=== PATIENT | male | born 1975 | race Caucasian/White ===

== ENCOUNTER 2019-12-25 07:52 | Emergency (ER) | payer BC, SELFPAY ==
[2019-12-25 07:53] VITALS: BP 140/86; PULSE 102; RESP 18; TEMP 35.9; O2SAT 98; BMI 30.6
--- NOTE | 2019-12-25 08:51 | ED.VIS.GEN ---
History of Present Illness Chief Complaint: Fatigue Informant: Patient Narrative: Patient presents the emergency department with a 3-day history of generalized body aches fatigue lightheadedness throat dry cough. He shortness of breath, fever, diarrhea. He notes that yesterday he had a rash on his body but it is resolved. He did not feel that he was able to go to work today so he went to work talk to his boss and they are requiring a work note for him to stay home. He has no primary care physician. Past Medical History - Allergies and Home Meds Allergies/Adverse Reactions: Allergies dexamethasone [From Decadron] Adverse Reaction (Verified 12/25/19 07:55) Upset Stomach Primary Care Physician: Care Physician,No Primary [Primary Care Provider] - Smoking Status: Former smoker Review of Systems General: Reports: Malaise. Denies: Chills, Fever, Sweats Eyes: Denies: Visual changes - bilaterally, Diplopia ENT: Reports: Sore throat. Denies: Left ear pain, Right ear pain, Rhinorrhea Cardiovascular: Denies: Chest pain, Palpitations Respiratory: Reports: Cough. Denies: Dyspnea, Dyspnea on exertion Gastrointestinal: Denies: Abdominal pain, Nausea, Vomiting, Diarrhea, Melena, Hematochezia Genitourinary: Denies: Dysuria, Hematuria, Frequency Musculoskeletal: Reports: Myalgias. Denies: Back pain, Extremity Pain Skin: Denies: Rash, Wounds Neurological: Reports: Headache. Denies: Weakness, Numbness Physical Exam Vital Signs/Narrative: Vital Signs Temp Pulse Resp BP Pulse Ox 12/25/19 07:53 96.6 F L 102 H 18 140/86 H 98 General: Well nourished, Well developed, No Acute Distress Head: Normocephalic, Atraumatic Eyes: Perrl, EOMI ENT: Moist mucous membranes, No rhinorrhea Neck: Supple, Nontender Cardiovascular: Regular rate, Regular rhythm, No murmurs Respiratory: No distress, CTA bilaterally, Chest nontender Abdomen: Soft, Nontender, Nondistended, Normal bowel sounds Back: Nontender, Normal Inspection Extremities: Nontender, No edema Skin: Normal color, No rash Neurological: Alert, Oriented x3, Cranial nerves II-XII grossly intact, Normal Strength, Normal Sensation Psychological: Normal affect, Normal Mood Diagnostic/Tx/Re-eval - Medical Decision Making This appears to be a viral illness. We can swab him for COVID-19 as this visit took place during a pandemic. I recommend Tylenol Motrin fluids and rest. I can write him work note for couple days. Needs to establish primary care. Referral given. ED Disposition - Plan for ED Patient: Disposition: Home or Assisted Living Diagnosis: Viral syndrome Instructions: ED Viral Syndrome Referrals: Tian Palacios MD [STAFF PHYSICIAN] - (call for follow up and to establish primary care)
== END 2019-12-25 09:29 | disposition home or self-care (01) ==
PROVIDERS: Emergency Provider Emergency Medicine
DX: B34.9 Viral infection, unspecified (principal); Z87.891 Personal history of nicotine dependence
CPT/HCPCS: 87635; 94799; 99282; U0003

== ENCOUNTER → 2020-04-22 14:18 | Outpatient (CLI) | payer BC, SELFPAY ==
[2020-04-22 13:21] VITALS: BMI 32.7
[2020-04-22 15:07] LABS: Absolute Lymphocyte Count 1.31 X10^3/uL (0.83-4.51); Basophil# 0.06 X10^3/uL; Eosinophil# 0.16 X10^3/uL; Eosinophils% 2.7 % (0-5); Hematocrit 49.8 % (40-54); Hemoglobin 15.8 g/dL (13.0-16.5); Lymphocyte # 1.31 X10^3/ul (4.0); Lymphocyte % 22.1 % (19-41); Mean Corp Hgb Conc 31.7 g/dL (32-36); Mean Corpuscular Hgb 27.3 pg (27.0-32.0); Mean Platelet Vol. 10.2 fl (6.2-12.0); Monocyte# 0.36 X10^3/uL; Monocyte% 6.1 % (0-10); NRBC Flagged by Analyzer 0 % (0-5); Neutrophil # 4.04 X10^3/uL (2.7-7.7); Neutrophil % 67.9 % (47-70); Platelet Count 255 K/mm3 (150-450); RBC Distribution Width CV 13.3 % (11.6-14.6); RBC Distribution Width SD 41.5 fl (35.1-43.9); Red Blood Count 5.79 M/mm3 (4.6-6.2); White Blood Count 5.9 K/mm3 (4.4-11.0)
[2020-04-22 15:22] LABS: Hemoglobin A1c 5.9 % (3.8-5.6)
[2020-04-22 15:26] LABS: AST(SGOT) 14 U/L (15-37); Alanine Aminotransfer ALT/SGPT 38 U/L (16-61); Albumin, Serum 3.9 g/dL (3.2-5.0); Alkaline Phosphatase 82 U/L (45-117); Anion Gap 6 (5-15); BUN 12 mg/dL (7-18); Calcium,Total 8.8 mg/dL (8.5-10.1); Chloride 106 mmol/L (98-107); Cholesterol 158 mg/dL (200); Creatinine, Serum 1.09 mg/dL (0.70-1.30); EST Glomerular Filtration Rate 78 mL/min (>60); Est Glom Filt Rate - Afr Amer 95 mL/min (>60); Glucose 113 mg/dL (74-106); High Density Lipoprotein 45 mg/dL; Potassium 3.9 mmol/L (3.5-5.1); Protein, Total 7.9 g/dL (6.4-8.2); Sodium Level 139 mmol/L (136-145); Thyroid Stim Hormone (TSH) 0.66 uIU/mL (0.358-3.74); Triglycerides 151 mg/dL; Very Low Density Lipoprotein 30 mg/dL (5-40)
== END ==
PROVIDERS: Visit Provider Internal Medicine
DX: G47.30 Sleep apnea, unspecified (principal); R73.9 Hyperglycemia, unspecified
CPT/HCPCS: 36415; 80053; 80061; 83036; 84443; 85025

== ENCOUNTER 2021-07-31 12:27 | Outpatient (CLI) | payer BC, SELFPAY ==
[2021-07-31 15:18] LABS: Absolute Neutrophil Count 3.8 X10^3/uL (2.0-7.7); Basophil# 0.04 X10^3/uL; Basophil% 0.7 % (0-1); Eosinophil# 0.09 X10^3/uL; Eosinophils% 1.6 % (0-5); Hematocrit 47.4 % (40-54); Hemoglobin 15.4 g/dL (13.0-16.5); Lymphocyte % 21.7 % (19-41); Mean Corp Hgb Conc 32.5 g/dL (32-36); Mean Corpuscular Hgb 27.8 pg (27.0-32.0); Mean Corpuscular Volume 85.6 fL (80-94); Mean Platelet Vol. 10.2 fl (6.2-12.0); Monocyte# 0.34 X10^3/uL; Monocyte% 6.2 % (0-10); NRBC Flagged by Analyzer 0 % (0-5); Neutrophil # 3.84 X10^3/uL (2.7-7.7); Neutrophil % 69.6 % (47-70); Platelet Count 267 K/mm3 (150-450); RBC Distribution Width CV 12.9 % (11.6-14.6); RBC Distribution Width SD 40.4 fl (35.1-43.9); Red Blood Count 5.54 M/mm3 (4.6-6.2); White Blood Count 5.5 K/mm3 (4.4-11.0)
[2021-07-31 15:31] LABS: Vitamin D,25 Hydroxy 10.9 ng/mL
[2021-07-31 15:44] LABS: ALB/GLOB Ratio 1.1 RATIO (0.9-2.4); AST(SGOT) 23 U/L (15-37); Alanine Aminotransfer ALT/SGPT 45 U/L (16-61); Albumin, Serum 4.4 g/dL (3.2-5.0); Alkaline Phosphatase 92 U/L (45-117); Anion Gap 6 (5-15); BUN 12 mg/dL (7-18); BUN/Creat Ratio 10.6 RATIO (10-20); Calcium,Total 9.1 mg/dL (8.5-10.1); Chloride 103 mmol/L (98-107); Cholesterol 161 mg/dL (200); Creatinine, Serum 1.13 mg/dL (0.70-1.30); EST Glomerular Filtration Rate 75 mL/min (>60); Est Glom Filt Rate - Afr Amer 90 mL/min (>60); Globulin 3.9 g/dL (2.2-4.2); Glucose 99 mg/dL (74-106); High Density Lipoprotein 34 mg/dL; Magnesium 2.4 mg/dL (1.6-2.6); PSA,Total - Annual Screen 0.64 ng/mL (0.00-4.00); Potassium 3.8 mmol/L (3.5-5.1); Protein, Total 8.3 g/dL (6.4-8.2); Sodium Level 136 mmol/L (136-145); Thyroid Stim Hormone (TSH) 1.35 uIU/mL (0.358-3.74); Triglycerides 279 mg/dL; Very Low Density Lipoprotein 56 mg/dL (5-40)
[2021-07-31 15:58] LABS: Hemoglobin A1c 6.4 % (3.8-5.6)
== END 2021-07-31 23:59 | disposition home or self-care (01) ==
PROVIDERS: PCP Internal Medicine; Referring Provider Internal Medicine; Visit Provider Internal Medicine
DX: I10 Essential (primary) hypertension (principal); G47.30 Sleep apnea, unspecified; F41.9 Anxiety disorder, unspecified; Z12.5 Encounter for screening for malignant neoplasm of prostate
CPT/HCPCS: 36415; 80053; 80061; 82306; 83036; 83735; 84153; 84443; 85025; G0103

== ENCOUNTER → 2021-12-04 | Outpatient (CLI) | payer BC, SELFPAY ==
[2021-12-04 10:20] LABS: Mucous, Urine 0 SEEN /hpf (<or=2+)
[2021-12-04 12:31] LABS: Color, Urine Yellow (Yellow); Glucose, Dipstick Normal (Normal); Ketone-Dipstick 5 mg/dl (Negative); Leukocyte Esterase-Dipstick 500 /ul (Negative); Nitrite-Dipstick Positive (Negative); Occult Blood-Urine 250 /ul (Negative); Protein-Dipstick 100 mg/dl (Negative); Urine Bilirubin Dipstick Negative (Negative); Urine Clarity Sl. Cloudy (Clear); Urine Urobilinogen Normal (Normal)
[2021-12-04 12:39] LABS: Bacteria 1+ /hpf (None Seen); Red Blood Cells-Urine 25-50 SEEN /hpf (0-5); Squamous Epithelial Cells - UA 0-5 SEEN /hpf (0-5); White Blood Cells 25-50 SEEN /hpf (0-5)
[2021-12-04 14:24] LABS: Chlamydia Trachomatis by PCR Negative (Negative); Neisserai gonorrhoeae by PCR Negative (Negative); Probe Check PASS; Sample Adequacy Control PASS; Specimen Processing Control PASS
== END | disposition home or self-care (01) ==
LOC: LABSPEC 10:19
PROVIDERS: PCP Internal Medicine; Referring Provider Physician Assistant; Visit Provider Physician Assistant
DX: R30.0 Dysuria (principal); R31.9 Hematuria, unspecified; Z11.3 Encounter for screening for infections with a predominantly sexual mode of transmission
CPT/HCPCS: 81001; 87086; 87088; 87491; 87591

== ENCOUNTER → 2023-07-08 | Outpatient (CLI) | payer OTHER, SELFPAY ==
[2023-07-08 12:48] LABS: Absolute Lymphocyte Count 1.24 X10^3/uL (0.83-4.51); Absolute Neutrophil Count 5.5 X10^3/uL (2.0-7.7); Basophil# 0.05 X10^3/uL; Basophil% 0.7 % (0-1); Eosinophil# 0.13 X10^3/uL; Eosinophils% 1.8 % (0-5); Hematocrit 47.8 % (40-54); Hemoglobin 15.5 g/dL (13.0-16.5); Lymphocyte # 1.24 X10^3/ul (0.83-4.51); Lymphocyte % 16.7 % (19-41); Mean Corp Hgb Conc 32.4 g/dL (32-36); Mean Corpuscular Hgb 26.9 pg (27.0-32.0); Mean Platelet Vol. 10.2 fl (6.2-12.0); Monocyte# 0.44 X10^3/uL; Monocyte% 5.9 % (0-10); NRBC Flagged by Analyzer 0 % (0-5); Neutrophil # 5.54 X10^3/uL (2.7-7.7); Neutrophil % 74.6 % (47-70); Platelet Count 251 K/mm3 (150-450); RBC Distribution Width CV 13.2 % (11.6-14.6); RBC Distribution Width SD 39.8 fl (35.1-43.9); Red Blood Count 5.76 M/mm3 (4.6-6.2); White Blood Count 7.4 K/mm3 (4.4-11.0)
[2023-07-08 13:17] LABS: Vitamin B12 314 pg/mL (211-911); Vitamin D,25 Hydroxy 14.1 ng/mL
[2023-07-08 13:41] LABS: ALB/GLOB Ratio 0.9 RATIO (0.9-2.4); AST(SGOT) 28 U/L (15-37); Alanine Aminotransfer ALT/SGPT 59 U/L (16-61); Albumin, Serum 4.1 g/dL (3.2-5.0); Alkaline Phosphatase 92 U/L (45-117); Anion Gap 4 (5-15); BUN 16 mg/dL (7-18); BUN/Creat Ratio 14.2 RATIO (10-20); Calcium,Total 9.8 mg/dL (8.5-10.1); Chloride 103 mmol/L (98-107); Cholesterol 151 mg/dL (200); Creatinine, Serum 1.13 mg/dL (0.70-1.30); EST Glomerular Filtration Rate 74 mL/min (>60); Est Glom Filt Rate - Afr Amer 90 mL/min (>60); Free T3 3.3 pg/mL (2.18-3.98); Globulin 4.4 g/dL (2.2-4.2); Glucose 142 mg/dL (74-106); High Density Lipoprotein 37 mg/dL; Magnesium 2.1 mg/dL (1.6-2.6); PSA,Total - Annual Screen 1.67 ng/mL (0.00-4.00); Protein, Total 8.5 g/dL (6.4-8.2); Sodium Level 135 mmol/L (136-145); Thyroid Stim Hormone (TSH) 1.41 uIU/mL (0.358-3.74); Triglycerides 349 mg/dL; Very Low Density Lipoprotein 70 mg/dL (5-40)
[2023-07-08 13:49] LABS: Hemoglobin A1c 6.6 % (3.8-5.6)
== END | disposition home or self-care (01) ==
PROVIDERS: PCP Internal Medicine; Referring Provider Internal Medicine; Visit Provider Internal Medicine
DX: I10 Essential (primary) hypertension (principal); G47.30 Sleep apnea, unspecified; Z12.5 Encounter for screening for malignant neoplasm of prostate; Z13.220 Encounter for screening for lipoid disorders; E55.9 Vitamin D deficiency, unspecified; E88.819 Insulin resistance, unspecified; R73.9 Hyperglycemia, unspecified; E53.8 Deficiency of other specified B group vitamins
CPT/HCPCS: 36415; 80053; 80061; 82306; 82607; 83036; 83525; 83735; 84153; 84439; 84443; 84481; 85025; G0103

== ENCOUNTER → 2024-06-20 | Outpatient (CLI) | payer BC, SELFPAY ==
[2024-06-20 13:49] LABS: Absolute Lymphocyte Count 1.15 X10^3/uL (0.83-4.51); Basophil# 0.06 X10^3/uL; Eosinophil# 0.27 X10^3/uL; Eosinophils% 4.7 % (0-5); Hematocrit 45.1 % (40-54); Hemoglobin 14.7 g/dL (13.0-16.5); Lymphocyte # 1.15 X10^3/ul (0.83-4.51); Lymphocyte % 19.8 % (19-41); Mean Corp Hgb Conc 32.6 g/dL (32-36); Mean Corpuscular Hgb 27.3 pg (27.0-32.0); Mean Corpuscular Volume 83.7 fL (80-94); Mean Platelet Vol. 9.8 fl (6.2-12.0); Monocyte# 0.31 X10^3/uL; Monocyte% 5.3 % (0-10); NRBC Flagged by Analyzer 0 % (0-5); Platelet Count 215 K/mm3 (150-450); RBC Distribution Width CV 13.2 % (11.6-14.6); RBC Distribution Width SD 40.6 fl (35.1-43.9); Red Blood Count 5.39 M/mm3 (4.6-6.2); White Blood Count 5.8 K/mm3 (4.4-11.0)
[2024-06-20 14:20] LABS: ALB/GLOB Ratio 0.9 RATIO (0.9-2.4); AST(SGOT) 22 U/L (15-37); Alanine Aminotransfer ALT/SGPT 39 U/L (16-61); Albumin, Serum 3.8 g/dL (3.2-5.0); Alkaline Phosphatase 78 U/L (45-117); Anion Gap 7 (5-15); BUN 11 mg/dL (7-18); BUN/Creat Ratio 10.1 RATIO (10-20); Calcium,Total 9.3 mg/dL (8.5-10.1); Chloride 104 mmol/L (98-107); Cholesterol 131 mg/dL (200); Creatinine, Serum 1.09 mg/dL (0.70-1.30); EST Glomerular Filtration Rate 77 mL/min (>60); Est Glom Filt Rate - Afr Amer 93 mL/min (>60); Globulin 4.1 g/dL (2.2-4.2); Glucose 105 mg/dL (74-106); High Density Lipoprotein 40 mg/dL; PSA,Total- Diagnostic 0.69 ng/mL (0.0-4.0); Potassium 3.7 mmol/L (3.5-5.1); Protein, Total 7.9 g/dL (6.4-8.2); Sodium Level 137 mmol/L (136-145); Triglycerides 176 mg/dL; Very Low Density Lipoprotein 35 mg/dL (5-40)
[2024-06-25 13:06] LABS: Testosterone, % Free 5.58 % (1.50-4.20); Testosterone, Free 13.06 ng/dL (5.00-21.00); Testosterone, Total 234 ng/dL (264-916)
== END | disposition home or self-care (01) ==
LOC: LAB 13:26
PROVIDERS: PCP Internal Medicine
DX: R53.83 Other fatigue (principal); Z13.220 Encounter for screening for lipoid disorders; Z13.29 Encounter for screening for other suspected endocrine disorder; Z12.5 Encounter for screening for malignant neoplasm of prostate
CPT/HCPCS: 36415; 80053; 80061; 84153; 84402; 84403; 84443; 85025

== ENCOUNTER 2024-08-26 01:10 | Emergency (ER) | payer BC, SELFPAY ==
[2024-08-26 01:10] VITALS: BP 159/87; PULSE 78; RESP 16; TEMP 36.7; O2SAT 98; BMI 33.2
[2024-08-26 01:13] VITALS: BP 159/87; PULSE 78; RESP 16; TEMP 36.7; O2SAT 98
--- NOTE | 2024-08-26 01:34 | EX.ED.DYSGE1 ---
HPI History of Present Illness Chief Complaint: Fever [facility] Medical History (Updated 08/26/24 @ 02:[address] Jarred England, DO) Subcutaneous mass Anxiety Sleep apnea Essential hypertension Home Medications ?Medication ?Instructions ?Recorded ?Last Taken ?Type lisinopril 20 1 tab PO DAILY #90 tabs 07/08/23 Unknown Rx mg-hydrochlorothiazide 12.5 mg tablet trazodone 50 mg tablet 50 mg PO QHS PRN sleep #30 tabs 07/08/23 Unknown Rx citalopram 40 mg tablet 40 mg PO DAILY 08/26/24 Unknown History ondansetron 4 mg disintegrating 4 mg PO Q8H PRN PRN Nausea #10 tabs 08/26/24 Unknown Rx tablet Allergy/AdvReac Type Severity Reaction Status Date / Time dexamethasone (From Decadron) AdvReac Upset Verified 08/26/24 01:15 Stomach Family History Mother Diabetes Hypertension Brother Diabetes Father , stroke Hypertension CVA (cerebral vascular accident) Surgical History Hx of hand surgery Social History Smoking Status: Current every day smoker tobacco type: cigarettes and e-cigarettes Electronic Cigarette Use: with nicotine alcohol intake: current alcohol intake frequency: a few times a month substance use type: does not use caffeine: Yes what type of physical activity do you participate in: walking, running and weight training frequency: 3-4 times per week EXAM Physical Exam Const Vital Signs: 08/26/24 01:10 08/26/24 01:13 08/26/24 01:13 Temperature 98.1 F 98.1 F Temperature Source Oral Oral Pulse Rate 78 78 Respiratory Rate 16 16 Respiratory Effort Normal Respiratory Pattern Normal Blood Pressure 159/87 H 159/87 H Blood Pressure Mean 111 111 Pulse Ox 98 98 Oxygen Delivery Method Room Air Room Air 08/26/24 01:42 08/26/24 03:00 08/26/24 03:08 Temperature 98.1 F 98.1 F Temperature Source Oral Pulse Rate 70 73 Respiratory Rate 18 18 Respiratory Effort Respiratory Pattern Blood Pressure 107/64 124/66 H 124/66 H Blood Pressure Mean 78 85 85 Pulse Ox 99 99 Oxygen Delivery Method Room Air MDM MDM MDM Narrative Medical decision making narrative: HISTORY OF PRESENT ILLNESS: Chief complaint: viral illness 48-year-old male presents with concern for fever, body aches congestion and weakness. He notes he had a colonoscopy done on (08/24/2024). Patient states he is concerned he may be having complication because since then has been having fever, head congestion and bodyaches. No sick contacts. He denies abdominal pain. He denies diarrhea. Denies trouble urinating. States primary concern is complication related to colonoscopy. REVIEW OF SYSTEMS: Pertinent positives: As per HPI Pertinent negatives: Abdominal pain, diarrhea PHYSICAL EXAM: Nursing triage notes reviewed, Vital signs reviewed Constitutional: please see [facility] HENT: MMM Eyes: Pupils equal round and reactive to light, Extraocular muscles intact Neck: No stridor, no JVD, full neck ROM Lungs: Clear to auscultation, No wheezing or rales. No increased work of breathing, no conversational dyspnea, no accessory muscle use, no nasal flaring. No respiratory distress noted Heart: Regular rate and rhythm, No murmurs, No rubs and No gallops, 2+ distal pulses (radial, femoral, posterior tibial) in all extremities Abdomen: Soft, there is no tenderness, rigidity, rebound or guarding, no obvious peritoneal signs, no palpable pulsatile abdominal masses, no auscultated abdominal bruit : No CVAT Extremities: No edema Neuro: No new focal neurological deficits, cranial nerves II through XII intact, 5/5 strength in all present extremities. Intact sensation to light touch in all present extremities, 2+ reflexes bilateral patella tendons. Skin: No rash or lesions noted MEDICAL DECISION MAKING: Chief Complaint: please see [facility] External records reviewed: Reviewed prior surgical history Factors affecting care: Hypertension Social determinants of health: none History obtained from others: none Consults: none [facility] Narrative: Patient was initially hemodynamically stable, afebrile and nontoxic-appearing. Exam without focus of infection. Abdomen soft and nontender. I considered the following differential diagnosis: Post colonoscopy complication, dehydration, COVID, pneumonia, flu, RSV I obtained a broad lab and imaging workup to further elucidate etiology of patient's complaints. ALL IMAGES (IF OBTAINED) HAVE BEEN PERSONALLY REVIEWED AND INTERPRETED BY MYSELF. Influenza A positive CBC without leukocytosis, severe anemia, no thrombocytopenia. CMP without evidence of acute kidney injury, significant electrolyte abnormality, anion gap to suggest end organ hypo-perfusion, no evidence of metabolic acidosis with a normal bicarbonate, no evidence of hepatobiliary obstructive pathology. CT scan abdomen pelvis negative for acute abnormalities or postsurgical complication Lipase is wnl indicating no pancreatic inflammation. I have personally reviewed the patient's chest x-ray. Chest x-ray is unremarkable for pulmonary edema, pneumothorax, pneumonia or focal cardiopulmonary abnormality. Lactate is wnl indicating no end-organ hypoperfusion and/or hypoxia. Urinalysis shows no evidence of urinary inflammation suggestive of UTI The synthesis of the patient's history, physical exam, labs images suggest no acute life or limb threatening etiology. He is likely suffering from influenza. The patient and/or family, caregivers express understanding. The patient and/or family, caregivers agrees with the plan. Shared decision making: I will have a discussion with the patient and or visitors regarding risk/benefits of further testing or admission. They will be made aware of of the risk/benefits inherent in this decision they will be given the opportunity to voice understanding. Total critical care time today provided was at least 0 minutes. This excludes separately billable procedures. Critical care time (if documented) is secondary to the patient having high probability of clinically significant/life threatening deterioration in the patient's condition which required my urgent intervention. Impression: 1. Influenza A 2. Fever Dispo: Discharge home This note was generated with [employer] dictation software. It may contain incorrect words, spelling, and punctuation that were not noted in review of the chart prior to signing. Lab Data Attestation: I reviewed the patient's lab results. Labs: Laboratory Results - last 24 hr 08/26/24 08/26/24 01:56 02:00 WBC 5.9 RBC 5.22 Hgb 14.3 Hct 43.9 MCV 84.1 MCH 27.4 MCHC 32.6 RDW Std Deviation 42.4 RDW Coeff of Alex 13.9 Plt Count 209 MPV 10.1 Immature Gran % (Auto) 0.300 Neut % (Auto) 65.2 Lymph % (Auto) 17.3 L [place] % (Auto) 10.6 H Eos % (Auto) 5.9 H Baso % (Auto) 0.7 Absolute Neuts (auto) 3.9 Absolute Lymphs (auto) 1.03 Nucleated RBC % 0 Sodium 137 Potassium 3.9 Chloride 100 Carbon Dioxide 24.3 Anion Gap 13 BUN 13 Creatinine 1.24 H Estim Creat Clear Calc 103.02 Est GFR (MDRD) Non-Af 72 BUN/Creatinine Ratio 10.6 Glucose 114 H Lactic Acid < 1.0 Calcium 9.7 Total Bilirubin 0.76 AST 31 ALT 34 Alkaline Phosphatase 86 Total Protein 8.0 Albumin 4.4 Globulin 3.6 Albumin/Globulin Ratio 1.2 Lipase 32 Urine Color Yellow Urine Clarity Sl. Cloudy Urine pH 6.0 Ur Specific [place] 1.030 Urine Protein 100 H Urine Glucose (UA) Normal Urine Ketones Negative Urine Occult Blood 150 H Urine Nitrite Negative Urine Bilirubin Negative Urine Urobilinogen 1 H Ur Leukocyte Esterase 25 H Urine RBC 0 SEEN Urine WBC 10-25 SEEN Ur Squamous Epith Cells 5-10 SEEN Urine Bacteria 3+ Hyaline Casts 0-5 SEEN Urine Mucus 4+ Radiography Chest X-Ray - ED: Read by ED Physician Diagnostic Testing: Clinical Impression(s) from Imaging Studies Abdomen/Pelvis CT 08/26/24 01:48 IMPRESSION: No evidence of acute intra-abdominal process as above. Reading Location: [facility] Chest X-Ray 08/26/24 02:27 IMPRESSION: No evidence of acute disease. Reading Location: [facility] Discharge Plan Triage Chief Complaint: Fever ED Provider: Jarred England Dx/Rx/DC Orders Clinical Impression: Influenza A Instructions: The Flu (Influenza) Prescriptions: New ondansetron 4 mg tablet,disintegrating 4 mg PO Q8H PRN PRN (Reason: Nausea) Qty: 10 0RF No Action trazodone 50 mg tablet 50 mg PO QHS PRN (Reason: sleep) Qty: 30 1RF lisinopril-hydrochlorothiazide 20-12.5 mg tablet 1 tab PO DAILY Qty: 90 3RF citalopram 40 mg tablet 40 mg PO DAILY Primary Care Provider: Faustina Casarez Referrals: Jazz Sherwood MD [Med Staff - [facility]] - Activity Restrictions/Additional Instructions: Thank you for trusting us with your care today! Your influenza test was positive is likely cause of your symptoms i.e. the flu. Your CT scan your and pelvis showed no signs of postoperative complications Please take Tylenol (2 pills, 650 mg), ibuprofen (2 pills, 400 mg) every 6 hours as needed for pain and fever control. Please return to the emergency department if your symptoms change or worsen. Please follow with your primary care physician for further outpatient evaluation and management. Print Language: Puerto Rican Disposition Disposition: Home, Self Care Discharge Date/Time: 08/26/24 03:15
[2024-08-26 01:42] VITALS: BP 107/64
--- NOTE | 2024-08-26 01:48 | EKG12_ITS ---
Test Reason : DYSRHYTHMIA Blood Pressure : */* mmHG Vent. Rate : 71 BPM Atrial Rate : 71 BPM P-R Int : 156 ms QRS Dur : 102 ms QT Int : 388 ms P-R-T Axes : 18 -20 -7 degrees QTcB Int : 421 ms Normal sinus rhythm Minimal voltage criteria for LVH, may be normal variant ( R in aVL ) Inferior infarct , age undetermined Abnormal ECG Confirmed by Varun Baltazar ([id number]), editor continuity and script EVELIN BURGOS ([id number]) on 08/28/2024 6:56:47 AM Referred By: Confirmed By: Varun Baltazar
--- NOTE | 2024-08-26 01:48 | CT_ITS ---
PROCEDURE: ABDOMEN/PELVIS W IV CONT ONLY 08/26/2024 REASON FOR EXAM: FEVER, STATUS POST COLONOSCOPY, R/O COMPLICATION TECHNIQUE: Abdomen and pelvis CT with intravenous contrast. Coronal and Sagittal reconstruction series were provided. PATIENT PREPARATION: Per protocol ORAL CONTRAST TYPE: None. CONTRAST: 98 cc Isovue 370 IV One or more dose reduction techniques were used (e.g., Automated exposure control, adjustment of the mA and/or kV according to patient size, use of iterative reconstruction technique. RADIATION DOSE SUMMARY: CTDlvol: 23.05 mGy DLP: 1161.43 mGycm COMPARISON: None available FINDINGS: The lung bases are clear. The liver, adrenal glands, kidneys, gallbladder, pancreas and spleen appear within limits. Abdominal aorta within limits. No adenopathy. No bowel dilation or free air. Normal caliber appendix without secondary signs. Bowel appears within limits. The bladder and prostate appear within limits. No free fluid. Left paracentral, foraminal, far lateral posterior disc osteophyte complex on the left at L3-4 resulting in significant appearing foraminal narrowing for example axial 60 and sagittal 91. Partially left sacralized L5 vertebral body for nomenclature purposes. CT/Abdomen/Pelvis W IV Cont ONLY IMPRESSION: No evidence of acute intra-abdominal process as above. Reading Location: [id number]
[2024-08-26] MEDS: 0.9% Normal Saline (1000mL) 1,000 ML 1000 ML IV (02:02)
[2024-08-26] MEDS: Ketorolac 15 MG/ML Vial IV (02:02)
[2024-08-26] MEDS: Ondansetron 4 MG/2 ML Vial IV (02:03)
[2024-08-26 02:08] LABS: Red Blood Cells-Urine 0 SEEN /hpf (0-5)
[2024-08-26 02:11] LABS: Absolute Lymphocyte Count 1.03 X10^3/uL (0.83-4.51); Absolute Neutrophil Count 3.9 X10^3/uL (2.0-7.7); Basophil# 0.04 X10^3/uL; Basophil% 0.7 % (0-1); Eosinophil# 0.35 X10^3/uL; Eosinophils% 5.9 % (0-5); Hematocrit 43.9 % (40-54); Hemoglobin 14.3 g/dL (13.0-16.5); Lymphocyte # 1.03 X10^3/ul (0.83-4.51); Lymphocyte % 17.3 % (19-41); Mean Corp Hgb Conc 32.6 g/dL (32-36); Mean Corpuscular Hgb 27.4 pg (27.0-32.0); Mean Corpuscular Volume 84.1 fL (80-94); Mean Platelet Vol. 10.1 fl (6.2-12.0); Monocyte# 0.63 X10^3/uL; Monocyte% 10.6 % (0-10); NRBC Flagged by Analyzer 0 % (0-5); Neutrophil # 3.87 X10^3/uL (2.7-7.7); Neutrophil % 65.2 % (47-70); Platelet Count 209 K/mm3 (150-450); RBC Distribution Width CV 13.9 % (11.6-14.6); RBC Distribution Width SD 42.4 fl (35.1-43.9); Red Blood Count 5.22 M/mm3 (4.6-6.2); White Blood Count 5.9 K/mm3 (4.4-11.0)
[2024-08-26 02:12] LABS: Color, Urine Yellow (Yellow); Glucose, Dipstick Normal (Normal); Ketone-Dipstick Negative (Negative); Leukocyte Esterase-Dipstick 25 /ul (Negative); Nitrite-Dipstick Negative (Negative); Occult Blood-Urine 150 /ul (Negative); Protein-Dipstick 100 mg/dl (Negative); Urine Bilirubin Dipstick Negative (Negative); Urine Clarity Sl. Cloudy (Clear); Urine Urobilinogen 1 mg/dl (Normal)
--- NOTE | 2024-08-26 02:27 | RAD_ITS ---
PROCEDURE: CHEST 1 VIEW (PORTABLE) 08/26/2024 REASON FOR EXAM: COUGH TECHNIQUE: Frontal view of the chest. Two views to include the entire chest COMPARISON: None available FINDINGS: The lungs appear clear. Pulmonary vascularity appears within limits. The cardiac and mediastinal contours appear within limits. The visualized osseous structures appear within limits. RAD/Chest 1 View (Portable) IMPRESSION: No evidence of acute disease. Reading Location: [id number]
[2024-08-26 02:33] LABS: ALB/GLOB Ratio 1.2 RATIO (0.9-2.4); AST(SGOT) 31 U/L (<=37); Alanine Aminotransfer ALT/SGPT 34 U/L (<=46); Albumin, Serum 4.4 g/dL (3.5-5.0); Alkaline Phosphatase 86 U/L (40-129); Anion Gap 13 (5-15); BUN 13 mg/dL (4-19); BUN/Creat Ratio 10.6 RATIO (10-20); Calcium,Total 9.7 mg/dL (7.6-11.0); Carbon Dioxide 24.3 mmol/L (21.0-32.0); Chloride 100 mmol/L (98-108); Creatinine, Serum 1.24 mg/dL (0.70-1.20); EST Glomerular Filtration Rate 72 (>60); Estimated Creatinine Clearance 103.02 ml/min (50-250); Globulin 3.6 g/dL (2.2-4.2); Glucose 114 mg/dL (70-99); Lipase 32 U/L (13-75); Potassium 3.9 mmol/L (3.3-5.1); Sodium Level 137 mmol/L (133-145); Total Bilirubin 0.76 mg/dL (0.00-1.30)
[2024-08-26 02:58] LABS: Lactic Acid < 1.0 mmol/L (0.0-2.0)
[2024-08-26 03:00] VITALS: BP 124/66; PULSE 70; RESP 18; TEMP 36.7; O2SAT 99
[2024-08-26 03:01] LABS: Bacteria 3+ /hpf (None Seen); Hyaline Cast 0-5 SEEN /lpf (0-5); Mucous, Urine 4+ /hpf (<or=2+); Squamous Epithelial Cells - UA 5-10 SEEN /hpf (0-5); White Blood Cells 10-25 SEEN /hpf (0-5)
[2024-08-26 03:08] VITALS: BP 124/66; PULSE 73; RESP 18; TEMP 36.7; O2SAT 99
== END 2024-08-26 03:15 | disposition home or self-care (01) ==
PROVIDERS: Emergency Provider Emergency Medicine; PCP Family Medicine; Visit Provider Emergency Medicine
DX: J10.1 Influenza due to other identified influenza virus with other respiratory manifestations (principal); F17.210 Nicotine dependence, cigarettes, uncomplicated; I10 Essential (primary) hypertension; R50.9 Fever, unspecified
CPT/HCPCS: 71045; 74177; 93005; 96361; 96374; 96375; 99284; Q9967; J2405

== ENCOUNTER 2024-09-27 00:25 | Emergency (ER) | payer OTHER, BC, SELFPAY ==
[2024-09-27 00:25] VITALS: BP 163/112; PULSE 71; RESP 18; TEMP 37; O2SAT 98; BMI 34.0
--- NOTE | 2024-09-27 00:51 | CT_ITS ---
PROCEDURE: SPINE LUMBAR WITHOUT CONTRAST 09/27/2024 REASON FOR EXAM: TRAUMA TECHNIQUE: Lumbar spine CT without contrast. Coronal and Sagittal reconstruction series were provided. One or more dose reduction techniques were used (e.g., Automated exposure control, adjustment of the mA and/or kV according to patient size, use of iterative reconstruction technique COMPARISON: None. RADIATION DOSE SUMMARY: CTDlvol: 27.25 mGy DLP: 948.67 mGycm FINDINGS: For nomenclature purposes L5 is partially sacralized on the left with associated degenerative changes. No fracture or malalignment. The disc spaces appear within limits. Large left far lateral, foraminal and paracentral disc osteophyte complex/herniation at L3-4 for example coronal 32. There is associated severe appearing left L3-4 foraminal narrowing and likely impinges on the exiting left L3 nerve sagittal 50 and may be impinging upon the traversing left L4 nerve at the subarticular recess for example axial [address]/Spine Lumbar without Contrast IMPRESSION: For nomenclature purposes L5 is partially sacralized on the left with associate d degenerative changes. No fracture or malalignment. Large left far lateral, foraminal and paracentral disc osteophyte complex/herni ation at L3-4 for example coronal 32. There is associated severe appearing left L3-4 foraminal narrowing and likely impinges o n the exiting left L3 nerve sagittal 50 and may be impinging upon the traversing left L4 nerve at the subarticular recess for exam ple axial 72 and sagittal 45. Reading Location: [id number]
[2024-09-27] MEDS: oxyCODONE 5 MG Tablet 10 MG PO (00:59)
[2024-09-27] MEDS: cycloBENZAPRine HCl 10 MG Tablet PO (01:00)
[2024-09-27 01:49] VITALS: BP 160/86; PULSE 64; RESP 18; TEMP 37; O2SAT 98
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
== END 2024-09-27 01:58 | disposition home or self-care (01) ==
PROVIDERS: Emergency Provider Emergency Medicine; PCP Family Medicine; Visit Provider Emergency Medicine
DX: S39.012A Strain of muscle, fascia and tendon of lower back, initial encounter (principal); I10 Essential (primary) hypertension; F17.210 Nicotine dependence, cigarettes, uncomplicated; V87.7XXA Person injured in collision between other specified motor vehicles (traffic), initial encounter; Y99.0 Civilian activity done for income or pay; Y92.89 Other specified places as the place of occurrence of the external cause
CPT/HCPCS: 72131; 99283